=== PATIENT | male | born 1980 | race African-American/Black ===

== ENCOUNTER 2020-11-03 13:54 | Observation (INO) ==
[2020-11-03] MEDS ORDERED: SODIUM CHLORIDE 0.9% 1,000 ML IV STA (14:34)
[2020-11-03 14:42] LABS: Basophils % 0.5 % (0.0-0.8); Hematocrit 42.5 VOL% (42.0-52.0); Hemoglobin 14.4 GM/DL (14.0-18.0); Immature Granulocytes % 0.2 %; Immature Granulocytes Absolute 0.01 #; Lymphocytes # 1.7 10*3/uL (1.4-4.0); Lymphocytes % 40.8 % (21.2-54.2); Mean Corpuscular HGB Conc 33.9 GM/DL (32-36); Mean Corpuscular Volume 95.9 FL (87-102); Mean Platelet Volume 10.4 FL (9.6-12.0); Monocytes % 18.9 % (1.7-12.7); Neutrophils % 38.6 % (38.7-73.9); Platelet Count 187 T/CUMM (130-400); Red Blood Count 4.43 MC/CUMM (3.8-5.5); Red Cell Distribution Width 13.5 % (9.3-17.3); White Blood Count 4.2 T/CUMM (4-12)
[2020-11-03 15:00] LABS: Albumin 3.9 G/DL (3.4-5.0); Bilirubin,Total 0.5 MG/DL (0.2-1.0); Calcium 8.7 MG/DL (8.5-10.1); Osmolality,Calculated 275.5 MOS/KG (273-304); Potassium 3.4 MMOL/L (3.5-5.1); Total Protein 8.3 G/DL (6.4-8.2)
[2020-11-03 15:02] LABS: Barbiturates Screen,Urine Negative (Negative); Benzodiazepines Screen,Urine Negative (Negative); Cannabinoid Screen,Urine Negative (Negative); Opiate Screen,Urine Negative (Negative); Phencyclidine Screen,Urine Negative (Negative)
[2020-11-03 15:05] LABS: Eosinophils 1 % (0-10); Giant Platelets Few; Lymphocytes 31 % (20-55); Platelet Estimate Adequate; Polychromasia Slight; Segmented Neutrophils 43 % (50-85); Total Cells Counted 100
[2020-11-03 15:23] LABS: Acetaminophen < 2.0 UG/ML (10-30)
[2020-11-03] MEDS ORDERED: GLUCAGON 1 MG VIAL IM PRN (16:29)
[2020-11-03] MEDS ORDERED: DEXTROSE 50% 25 GM/50 ML VIAL IV PRN (16:29)
[2020-11-03] MEDS ORDERED: ONDANSETRON 4 MG/2 ML VIAL IV PRN (16:29)
[2020-11-03] MEDS ORDERED: POTASSIUM CHLORIDE 20 MEQ TABLET PO ONE (16:34)
[2020-11-03] MEDS: SODIUM CHLORIDE 0.9% 1,000 ML IV SCH (17:42)
[2020-11-03] MEDS: ENOXAPARIN 40 MG/0.4 ML SYRINGE SUBCUT SCH (21:31)
[2020-11-03] MEDS ORDERED: ORPHENADRINE 60 MG/2 ML VIAL IV ONE (21:58)
[2020-11-03] MEDS ORDERED: MAGNESIUM SULF RIDER 4 GM/100 ML PREMIX IV PRN (22:03)
[2020-11-03] MEDS ORDERED: MAGNESIUM SULF RIDER 2 GM/50 ML PREMIX IV PRN (22:03)
[2020-11-03] MEDS: POTASSIUM CHLORIDE 20 MEQ TABLET PO PRN (22:12)
[2020-11-04] MEDS: POTASSIUM CHLORIDE 20 MEQ TABLET PO PRN ×3 (00:18→10:35)
[2020-11-04] MEDS: SODIUM CHLORIDE 0.9% 1,000 ML IV SCH ×3 (03:01→18:25)
[2020-11-04 05:02] LABS: Basophils % 0.6 % (0.0-0.8); Eosinophils # 0.1 10*3/uL (0.0-0.87); Hematocrit 41.6 VOL% (42.0-52.0); Hemoglobin 13.4 GM/DL (14.0-18.0); Lymphocytes # 2.7 10*3/uL (1.4-4.0); Lymphocytes % 53.5 % (21.2-54.2); Mean Corpuscular HGB Conc 32.2 GM/DL (32-36); Mean Corpuscular Volume 98.6 FL (87-102); Mean Platelet Volume 10.7 FL (9.6-12.0); Monocytes % 21.1 % (1.7-12.7); Neutrophils % 23.8 % (38.7-73.9); Platelet Count 190 T/CUMM (130-400); Red Blood Count 4.22 MC/CUMM (3.8-5.5); Red Cell Distribution Width 13.5 % (9.3-17.3); White Blood Count 5.1 T/CUMM (4-12)
[2020-11-04 05:38] LABS: Calcium 8.6 MG/DL (8.5-10.1); Osmolality,Calculated 273.8 MOS/KG (273-304); Potassium 3.4 MMOL/L (3.5-5.1)
[2020-11-04 05:56] LABS: Eosinophils 1 % (0-10); Lymphocytes 51 % (20-55); Platelet Estimate Normal; Segmented Neutrophils 27 % (50-85); Total Cells Counted 100
[2020-11-04 05:57] LABS: Anisocytosis Slight; Atypical Lymphocytes Few; Macrocytosis Slight; Smudge Cells Few
[2020-11-04] MEDS: ENOXAPARIN 40 MG/0.4 ML SYRINGE SUBCUT SCH (20:39)
[2020-11-05] MEDS: SODIUM CHLORIDE 0.9% 1,000 ML IV SCH ×2 (04:18→14:33)
[2020-11-05 12:38] VITALS: BP 124/79
== END 2020-11-05 12:35 | disposition left against medical advice (07) ==
LOC: EDUNIT# → EDBD → N.ED 13:54 → N.EDINP 13:54 → N.TELES 18:15
PROVIDERS: ADMIT Internal Medicine; ATTEND Internal Medicine